=== PATIENT | male | born 1950 | race American Indian/Alaskan Native ===

== ENCOUNTER 2019-10-05 10:32 | Emergency (ER) | payer BC, OTHER ==
[2019-10-05 10:43] VITALS: PULSE 66
--- NOTE | 2019-10-05 11:10 | EDM.PDOC ---
ED HPI GENERAL MEDICAL PROBLEM - General Chief Complaint: Cardiovascular Problem Stated Complaint: HIGH BLOOD PRESSURE Time Seen by Provider: 10/05/19 10:45 Source of Information: Reports: Patient History Limitations: Reports: No Limitations - History of Present Illness INITIAL COMMENTS - FREE TEXT/NARRATIVE: This 69 yo male patient reports to the ED due to elevated blood pressure. The patient reports he checked his blood pressure this morning at about 0900 finding a blood pressure of 219/101. The patient reports he took his blood pressure medications this morning at 0800 (Metoprolol ER 100 mg, Losartan 50 mg , HCTZ 25 mg and ASA). The patient reports he was also feeling lightheaded and dizzy this morning. The patient also reports feeling nauseated this morning also. The patient reports he continues to be slightly nauseated. The patient reports he also had right rotator cuff surgery last week which has caused him increased pain and difficulties sleeping. Onset: Today Duration: Improving Location: Reports: Generalized Quality: Reports: Other Severity: Moderate Improves with: Reports: None Worsens with: Reports: None Associated Symptoms: Reports: Nausea/Vomiting Right Shoulder Pain Score (Numeric/FACES): 4 - Related Data Allergies Allergy/AdvReac Type Severity Reaction Status Date / Time codeine Allergy Unknown Other Verified 10/05/19 10:41 Home Meds: Home Meds Aspirin [Halfprin] 81 mg PO DAILY 11/24/15 [History] Hydrochlorothiazide 25 mg PO DAILY 11/24/15 [History] Mometasone/Formoterol [Dulera 100-5 MCG] 2 puff INH BID 11/24/15 [History] Montelukast [Singulair] 10 mg PO BEDTIME 11/24/15 [History] atorvaSTATin [Lipitor] 10 mg PO BEDTIME 11/24/15 [History] Cetirizine HCl 10 mg PO DAILY 04/23/16 [History] Losartan [Cozaar] 50 mg PO DAILY 04/23/16 [History] Metoprolol Tartrate 25 mg PO BEDTIME 04/23/16 [History] Metoprolol Tartrate 50 mg PO DAILY 04/23/16 [History] Past Medical History HEENT History: Reports: Impaired Vision Other HEENT History: WEARS CORRECTIVE LENSES Cardiovascular History: Reports: Hypertension Respiratory History: Reports: Asthma Gastrointestinal History: Reports: Bowel Obstruction, Colon Polyp, Diverticulosis, Hemorrhoids, Other (See Below) Other Gastrointestinal History: intestinal blockage surgery approx 12 years ago. Long scar midline, but around navel. Genitourinary History: Reports: None Musculoskeletal History: Reports: Arthritis Neurological History: Reports: None Psychiatric History: Reports: None Endocrine/Metabolic History: Reports: None Hematologic History: Reports: None Immunologic History: Reports: None Oncologic (Cancer) History: Reports: None Dermatologic History: Reports: None - Infectious Disease History Infectious Disease History: Reports: None Other Infectious Disease History: DOES NOT RECALL INFECTIOUS HISTORY - Past Surgical History Head Surgeries/Procedures: Reports: None HEENT Surgical History: Reports: Oral Surgery Cardiovascular Surgical History: Reports: None Respiratory Surgical History: Reports: None GI Surgical History: Reports: Appendectomy, Colonoscopy, Polypectomy, Small Bowel Male Surgical History: Reports: Prostate Biopsy Endocrine Surgical History: Reports: None Neurological Surgical History: Reports: None Musculoskeletal Surgical History: Reports: Hip Replacement, Shoulder Surgery Oncologic Surgical History: Reports: None Dermatological Surgical History: Reports: Skin Graft Social & Family History - Family History Family Medical History: Noncontributory - Tobacco Use Smoking Status *Q: Never Smoker Second Hand Smoke Exposure: No - Caffeine Use Caffeine Use: Reports: Coffee Other Caffeine Use: 2 cups/day - Recreational Drug Use Recreational Drug Use: No - Living Situation & Occupation Living situation: Reports: , with Spouse ED ROS GENERAL - Review of Systems Review Of Systems: Comprehensive ROS is negative, except as noted in HPI. ED EXAM, GENERAL - Physical Exam Exam: See Below Exam Limited By: No Limitations General Appearance: Alert, WD/WN, Mild Distress Eye Exam: Bilateral Eye: EOMI, Normal Inspection, PERRL Ears: Normal External Exam, Normal Canal, Hearing Grossly Normal, Normal TMs Nose: Normal Inspection, Normal Mucosa, No Blood Throat/Mouth: Normal Inspection, Normal Lips, Normal Teeth, Normal Gums, Normal Oropharynx, Normal Voice, No Airway Compromise Head: Atraumatic, Normocephalic Neck: Normal Inspection, Supple, Non-Tender, Full Range of Motion Respiratory/Chest: No Respiratory Distress, Lungs Clear, Normal Breath Sounds, No Accessory Muscle Use, Chest Non-Tender Cardiovascular: Normal Peripheral Pulses, Regular Rate, Rhythm, No Edema, No Gallop, No JVD, No Murmur, No Rub GI/Abdominal: Normal Bowel Sounds, Soft, Non-Tender, No Organomegaly, No Distention, No Abnormal Bruit, No Mass (Male) Exam: Deferred Rectal (Males) Exam: Deferred Back Exam: Normal Inspection, Full Range of Motion, NT Extremities: Normal Inspection, Normal Range of Motion, Non-Tender, Normal Capillary Refill, No Pedal Edema Neurological: Alert, Oriented, CN II-XII Intact, Normal Cognition, Normal Gait, Normal Reflexes, No Motor/Sensory Deficits Psychiatric: Normal Affect, Normal Mood Skin Exam: Warm, Dry, Intact, Normal Color, No Rash Lymphatic: No Adenopathy Course - Vital Signs Last Recorded V/S: Last Vital Signs Temp 36.2 C 10/05/19 10:41 Pulse 66 10/05/19 10:41 Resp 16 10/05/19 10:41 BP 188/86 H 10/05/19 11:29 Pulse Ox 98 10/05/19 10:41 - Orders/Labs/Meds Orders: Active Orders 24 hr Category Date Time Status EKG Documentation Completion [RC] URGENT Care 10/05/19 10:57 Ordered Labs: Laboratory Tests 10/05/19 10/05/19 10/05/19 Range/Units 11:07 11:07 11:07 WBC 11.8 H (5.0-10.0) 10^3/uL RBC 5.28 (4.6-6.2) 10^6/uL Hgb 15.7 D (14.0-18.0) g/dL Hct 44.5 (40.0-54.0) % MCV 84.3 (80-100) fL MCH 29.7 (27.0-34.0) pg MCHC 35.3 H (33.0-35.0) g/dL Plt Count 226 (150-450) 10^3/uL Neut % (Auto) 79.7 H (42.2-75.2) % Lymph % (Auto) 13.1 L (20.5-50.1) % Tucker % (Auto) 6.5 (2-8) % Eos % (Auto) 0.5 L (1.0-3.0) % Baso % (Auto) 0.2 (0.0-1.0) % Sodium 138 (136-145) mmol/L Potassium 3.9 (3.5-5.1) mmol/L Chloride 99 (98-107) mmol/L Carbon Dioxide 34 H (21-32) mmol/L Anion Gap 8.9 (7-13) mEq/L BUN 20 H (7-18) mg/dL Creatinine 1.23 (0.70-1.30) mg/dL Est Cr Clr Drug Dosing TNP Estimated GFR (MDRD) 58 BUN/Creatinine Ratio 16.3 (No establ ref range) Glucose 143 H (74-99) mg/dL Calcium 8.6 (8.5-10.1) mg/dL Total Bilirubin 0.6 (0.2-1.0) mg/dL AST 20 (15-37) U/L ALT 34 (16-63) U/L Alkaline Phosphatase 89 (46-116) U/L Troponin I < 0.017 (0.000-0.056) ng/mL B-Natriuretic Peptide 53 (0-100) pg/ml Total Protein 7.3 (6.4-8.2) g/dL Albumin 3.9 (3.4-5.0) g/dL Globulin 3.4 Albumin/Globulin Ratio 1.1 Departure - Departure Time of Disposition: 11:40 Disposition: Home, Self-Care 01 Condition: Fair Clinical Impression: Hypertension Qualifiers: Hypertension type: unspecified Qualified Code(s): I10 - Essential (primary) hypertension Right shoulder pain Qualifiers: Chronicity: chronic Qualified Code(s): M25.511 - Pain in right shoulder; G89.29 - Other chronic pain Instructions: Hypertension, [id number] Forms: ED Department Discharge Care Plan Goals: The patient was advised of the examination, lab and EKG results during the visit. The patient was encouraged to continue to take his medications as prescribed. If the patient has any additional symptoms or concerns, the patient should either return to the emergency department or visit his primary care facility. Sepsis Event Note - Evaluation Sepsis Screening Result: No Definite Risk - Focused Exam Vital Signs: Vital Signs Temp Pulse Resp BP Pulse Ox 10/05/19 11:29 188/86 H 10/05/19 10:41 36.2 C 66 16 180/90 H 98 Date Exam was Performed: 10/05/19 Time Exam was Performed: 11:40 - My Orders Last 24 Hours: My Active Orders 10/05/19 10:57 EKG Documentation Completion [RC] URGENT - Assessment/Plan Last 24 Hours: My Active Orders 10/05/19 10:57 EKG Documentation Completion [RC] URGENT
[2019-10-05 11:30] VITALS: BP 188/86
[2019-10-05 11:34] LABS: ANION GAP 8.9 mEq/L (7-13); CHLORIDE,CL 99 mmol/L (98-107); SODIUM,NA 138 mmol/L (136-145)
== END 2019-10-05 11:49 | disposition home or self-care (01) ==
LOC: DL.ED 10:32
DX: I10 Essential (primary) hypertension (principal); M25.511 Pain in right shoulder; G89.29 Other chronic pain; Z79.82 Long term (current) use of aspirin; Z79.899 Other long term (current) drug therapy; Z88.5 Allergy status to narcotic agent; Z98.890 Other specified postprocedural states
CPT/HCPCS: 36415; 80053; 83880; 84484; 85025; 93005; 99283-25

== ENCOUNTER 2022-02-15 04:44 | Emergency (ER) | payer BC, OTHER ==
[2022-02-15] MEDS ORDERED: Nitroglycerin 0.4 MG Tab.SL SL ONE ×2 (04:55→05:38)
[2022-02-15] MEDS ORDERED: Aspirin 81 MG Tab.Chew PO ONE (04:57)
[2022-02-15 05:51] VITALS: BP 131/68
[2022-02-15 05:53] LABS: ANION GAP 12.2 mEq/L (7-13); CHLORIDE,CL 107 mmol/L (98-107); SODIUM,NA 143 mmol/L (136-145)
[2022-02-15 05:54] LABS: ESTIMATED GFR 62 mL/min (>=60)
[2022-02-15] MEDS ORDERED: GI Cocktail Oral Solution 30 ML PO ONE (05:57)
[2022-02-15] MEDS ORDERED: Pantoprazole 40 MG Vial IVPUSH ONE (05:57)
[2022-02-15 06:10] VITALS: PULSE 50
== END 2022-02-15 08:10 | disposition home or self-care (01) ==
LOC: DL.ED 04:44
DX: K21.9 Gastro-esophageal reflux disease without esophagitis (principal); I10 Essential (primary) hypertension; Z88.5 Allergy status to narcotic agent; Z79.82 Long term (current) use of aspirin; Z79.899 Other long term (current) drug therapy; Z20.822 Contact with and (suspected) exposure to COVID-19
CPT/HCPCS: 36415; 71045; 80053; 82150; 83690; 84484; 85025; 85379; 93005; 93010; 96374; 99283; 99285-25; A9270-GY; C9113; U0002

== ENCOUNTER 2023-04-23 07:18 | Day surgery (SDC) | payer MEDICARE, OTHER ==
[2023-04-23] MEDS ORDERED: fentaNYL 100 MCG/2 ML SDV ONE (07:27)
[2023-04-23] MEDS ORDERED: fentaNYL 100 MCG/2 ML SDV IV ONE ×5 (07:27→08:19)
[2023-04-23] MEDS ORDERED: Midazolam 1 MG/ML 2 ML SDV ONE (07:27)
[2023-04-23] MEDS ORDERED: Midazolam 1 MG/ML 2 ML SDV IV ONE ×7 (07:27→08:17)
[2023-04-23] MEDS ORDERED: Dextrose 5%-0.45% NaCl 1,000 ML IV SCH (07:30)
[2023-04-23 10:12] VITALS: BP 132/70; PULSE 55
== END 2023-04-23 10:43 | disposition home or self-care (01) ==
LOC: DL.ENDO 07:18
PROVIDERS: ATTEND Internal Medicine Gastroenterology
DX: K64.8 Other hemorrhoids (principal); J45.909 Unspecified asthma, uncomplicated; I10 Essential (primary) hypertension; Z98.890 Other specified postprocedural states; Z88.5 Allergy status to narcotic agent; Z86.010 Personal history of colon polyps
CPT/HCPCS: J2250; J3010; J7042

== ENCOUNTER 2023-09-10 05:58 | Day surgery (SDC) | payer MEDICARE, OTHER ==
[2023-09-10] MEDS ORDERED: Midazolam 1 MG/ML 2 ML SDV IV ONE (05:59)
[2023-09-10] MEDS ORDERED: fentaNYL 100 MCG/2 ML SDV IV ONE (05:59)
[2023-09-10] MEDS ORDERED: fentaNYL 100 MCG/2 ML SDV ONE (06:02)
[2023-09-10] MEDS ORDERED: Midazolam 1 MG/ML 2 ML SDV ONE (06:02)
[2023-09-10] MEDS: Dextrose 5%-0.45% NaCl 1,000 ML IV SCH (06:26)
[2023-09-10] MEDS: fentaNYL 100 MCG/2 ML SDV IV ONE ×2 (07:04→07:05)
[2023-09-10] MEDS: Midazolam 1 MG/ML 2 ML SDV IV ONE ×2 (07:05→07:06)
[2023-09-10 09:37] VITALS: BP 126/53; PULSE 60
== END 2023-09-10 09:05 | disposition home or self-care (01) ==
LOC: DL.ENDO 05:58
PROVIDERS: ATTEND Internal Medicine Gastroenterology
DX: K29.50 Unspecified chronic gastritis without bleeding (principal); I10 Essential (primary) hypertension; J45.909 Unspecified asthma, uncomplicated; Z79.899 Other long term (current) drug therapy
CPT/HCPCS: 43239; 87077; J2250; J3010; J7042